=== PATIENT | female | born 1970 | race Two or more races ===

== ENCOUNTER 2020-02-14 16:56 | Emergency (ER) | payer OTHER ==
[~2020-02-14] VITALS: Ht 157.5 cm; Wt 90.2 kg
[2020-02-14 18:49] LABS: BASOPHILS % (AUTO) 1 % (0-1); EOSINOPHILS % (AUTO) 3 % (1-7); LYMPHOCYTES % (AUTO) 24 % (22-44); MEAN CORPUSCULAR HEMOGLOBIN 28.8 pg (27.0-34.8); MEAN CORPUSCULAR HGB CONC 33.3 g/dL (32.4-35.8); MEAN PLATELET VOLUME 7.7 fL (7.4-10.4); MONOCYTES % (AUTO) 5 % (2-9); NEUTROPHILS % (AUTO) 68 % (42-75); PLATELET COUNT 317 x10^3/uL (130-400); RED BLOOD COUNT 4.86 x10^6/uL (3.82-5.3); RED CELL DISTRIBUTION WIDTH 13.8 % (9.6-15.2)
[2020-02-14 18:59] LABS: ANION GAP 6 mmol/L (5-15); CALCIUM 9.9 mg/dL (8.5-10.1); CHLORIDE 103 mmol/L (98-107); MD NO
--- NOTE | 2020-02-14 19:48 | NUR ---
WITH ASSESSMENT PATIENT REPORTS EXTREME LEFT EYE PAIN (FEELS IF FOREIGN BODY PRESENT, ABLE TO COUNT FINGER BUT VISUAL ACUITY UN-TESTABLE (BLURRY) RIGHT EYE 20/70, BOTH EYES 20/70
[2020-02-14] MEDS ORDERED: PROPARACAINE OPHTH 0.5%, 15ML ONE ×2 (19:53→21:04)
--- NOTE | 2020-02-14 19:56 | NUR ---
PROPARICAINE ADMINISTERED PER EMAR TO LEFT EYE FOR 10/10 PAIN
[2020-02-14] MEDS ORDERED: PROPARACAINE OPHTH 0.5%, 15ML EACHEYE ONE (20:00)
[2020-02-14] MEDS ORDERED: PLEASE ENTER ALLERGIES MC SCH (20:00)
--- NOTE | 2020-02-14 20:40 | NUR ---
LEFT EYE PAIN ONLY IMPROVED TO 8/10 PIV PLACED- TO CT SCAN AT 832PM
[2020-02-14] MEDS ORDERED: OMNIPAQUE 350 MG/ML, 75ML BOTTLE ONE (20:45)
[2020-02-14] MEDS ORDERED: MORPHINE SULFATE 4 MG/ML, 1ML ONE (21:04)
[2020-02-14] MEDS ORDERED: ONDANSETRON 2MG/ML, 2ML ONE (21:04)
[2020-02-14] MEDS ORDERED: FLUORESCEIN OPHTHALMIC 1 MG STRIP ONE (21:04)
--- NOTE | 2020-02-14 21:12 | NUR ---
PROVIDER AT BEDSIDE FOR EYE EXAM MEDICATED PER EMAR FOR PAIN MEDS
[2020-02-14] MEDS ORDERED: morphine SULFATE 10 MG/ML, 1ML IVPush ONE (21:30)
[2020-02-14] MEDS ORDERED: ONDANSETRON 2MG/ML, 2ML IVPush ONE (21:30)
[2020-02-14] MEDS ORDERED: FLUORESCEIN OPHTHALMIC 1 MG STRIP LEFTEYE ONE (21:30)
--- NOTE | 2020-02-14 21:32 | NUR ---
PAIN IMPROVED TO 4/10
--- NOTE | 2020-02-14 22:02 | NUR ---
REPORT TO CELENA BETANCOURT PATIENT UPDATED ON POC
--- NOTE | 2020-02-14 22:02 | NUR ---
report from anirudh doran. pt care transferred at this time. nad, resting on gurkeller waiting for consult. [facility].
--- NOTE | 2020-02-14 23:22 | NUR ---
PT RESTING ON GURNEY, AMBULATED TO AND FROM RESTROOM WITH A SMOOTH AND STEADY GAIT, NAD, DENIES ADDITIONAL NEEDS, PT UP FOR RECHECK. DAUGTHER AT , [facility].
[2020-02-14 23:23] VITALS: BP 141/93
--- NOTE | 2020-02-14 23:45 | NUR ---
Patient given discharge instructions and they have confirmed that they understand the instructions. Patient ambulatory with steady gait. NAD, DENIES ADDITIONAL QUESTIONS OR NEEDS AT THIS TIME. NO PERSONAL BELONGINGS LEFT IN ROOM AFTER DC.
== END 2020-02-14 23:46 | disposition home or self-care (01) ==
LOC: ED 17:47
DX: H16.012 Central corneal ulcer, left eye (principal); H57.12 Ocular pain, left eye; R51.9 Headache, unspecified
CPT/HCPCS: 36415; 70481; 80048; 85025; 99285; Q9967